=== PATIENT | female | born 1950 | race Caucasian/White ===

== ENCOUNTER → 2016-05-20 | Outpatient (REF) | payer BC | LOC: M SFHCCLAY 12:04 | PROVIDERS: ATTEND Family Medicine | DX: M79.1 Myalgia (principal) ==

== ENCOUNTER → 2016-07-12 | Outpatient (CLI) | payer BC ==
--- NOTE | 2016-07-12 11:04 | REPMRS ---
Patient History The patient states she had a clinical breast exam in Patient is postmenopausal. Family history of prostate cancer in father, breast cancer in paternal aunt at age 45, and colorectal cancer in paternal uncle at age 50 or over. Took unspecified hormones for 3 years. Digital Woman Screen Mammo: July 12, 2016 - Exam #: [id number] Bilateral CC and MLO view(s) were taken. Technologist: Charity Perez, Technologist Prior study comparison: July 11, 2015, digital woman screen mammo performed at [facility]. July 09, 2014, digital woman screen mammo performed at [facility]. July 06, 2012, digital woman screen mammo performed at [facility]. July 02, 2011, digital woman screen mammo performed at [facility]. FINDINGS: There are scattered fibroglandular densities. There has been no change in the appearance of the mammogram from the prior studies. There is a moderate amount of residual fibroglandular tissue which is fairly symmetric. There is no interval development of dominant mass, architectural distortion or clustered microcalcification suggestive of malignancy. Scattered lymph nodes are seen in the axilla. There is a benign appearing skin mole in the upper outer quadrant of the left breast. Scattered lymph nodes are seen in the left axilla. No significant changes when compared with prior studies. ASSESSMENT: BI-RADS/ACR category 2 mammogram. Benign finding(s). Recommendation Routine screening mammogram in 1 year (for women over age 40). This mammogram was interpreted with the aid of an FDA-approved computer-aided dectection system. A. Negative x-ray reports should not delay biopsy if a dominant or clinically suspicious mass is present. B. Four to eight percent of cancers are not identified by mammography. C. Adenosis and dense breast may obscure an underlying neoplasm. Electronically Signed By: Vinicius Guzmán MD 07/12/16 [id number]
== END ==
LOC: M WHC 09:31
PROVIDERS: ATTEND Nurse Practitioner Women's Health
DX: Z12.31 Encounter for screening mammogram for malignant neoplasm of breast (principal)

== ENCOUNTER → 2016-07-12 | Outpatient (REF) | payer BC | LOC: M SFHCWAGY 10:17 | PROVIDERS: ATTEND Nurse Practitioner Women's Health | DX: N88.8 Other specified noninflammatory disorders of cervix uteri (principal) ==

== ENCOUNTER → 2016-09-01 | Outpatient (CLI) | payer BC ==
[2016-09-01 14:55] LABS: ANION GAP 5 MEQ/L (8-16); BLOOD UREA NITROGEN 12 MG/DL (7-18); CALCIUM LEVEL 8.5 MG/DL (8.8-10.2); CARBON DIOXIDE LEVEL 33 MEQ/L (21-32); CHLORIDE LEVEL 99 MEQ/L (98-107); CREATININE FOR GFR 0.63 MG/DL (0.55-1.02); GLOMERULAR FILTRATION RATE > 60.0 (>45); GLUCOSE, FASTING 89 MG/DL (80-110); POTASSIUM SERUM 3.5 MEQ/L (3.5-5.1); SODIUM LEVEL 137 MEQ/L (136-145)
--- NOTE | 2016-09-01 16:10 | ECGEPIP ---
Stationary ECG Study [facility] Test Date: 2016-09-01 Pat Name: CORAZON LACKEY Department: Room: - Gender: F Doctor Of Dental Surgery: : 1950 Requested By: Kushal Rousseau Order Number: [id number] Reading MD: Ana Munoz Measurements Intervals [place] Rate: 68 P: 72 [place]: 168 QRS: 63 QRSD: 96 T: 66 QT: 377 QTc: 402 Interpretive Statements SINUS RHYTHM PRWP NO PRIOR Electronically Signed On 09-01-2016 16:10:10 EDT by Ana Munoz
== END ==
LOC: M LAB 14:06
PROVIDERS: ATTEND Ophthalmology
DX: I10 Essential (primary) hypertension (principal); R79.89 Other specified abnormal findings of blood chemistry; D58.2 Other hemoglobinopathies

== ENCOUNTER → 2017-01-13 | Outpatient (REF) | payer MEDICARE, BC | LOC: M SFHCCLAY 11:52 | PROVIDERS: ATTEND Family Medicine | DX: C44.519 Basal cell carcinoma of skin of other part of trunk (principal); C44.529 Squamous cell carcinoma of skin of other part of trunk ==

== ENCOUNTER → 2017-03-14 | Outpatient (REF) | payer MEDICARE, BC | LOC: M SFHCCLAY 15:42 | PROVIDERS: ATTEND Family Medicine | DX: R19.7 Diarrhea, unspecified (principal) | CPT/HCPCS: 87507; G0463 ==

== ENCOUNTER → 2017-05-11 | Outpatient (REF) | payer MEDICARE, BC ==
[2017-05-18 00:06] LABS: FATS NEUTRAL Normal (.); FATS TOTAL Normal (.)
== END ==
LOC: M LAB REF 13:44
DX: K59.1 Functional diarrhea (principal); K21.9 Gastro-esophageal reflux disease without esophagitis; R13.10 Dysphagia, unspecified; K92.1 Melena
CPT/HCPCS: 82705

== ENCOUNTER 2017-06-16 09:46 | Day surgery (SDC) | payer MEDICARE ==
[~2017-06-16 09:46] MED LIST: LIDOCAINE 2% MDV 20 ML VIAL As Ordered; PROPOFOL 200 MG/20 ML VIAL As Ordered
[2017-06-16] MEDS: NS 1,000 ML IV (10:28)
[2017-06-16] MEDS ORDERED: PROPOFOL 200 MG/20 ML VIAL As Ordered ×3 (11:47)
== END 2017-06-16 12:39 | disposition home or self-care (01) ==
LOC: M OPP 09:46
DX: R19.7 Diarrhea, unspecified (principal); Z86.010 Personal history of colon polyps; R13.10 Dysphagia, unspecified; K22.2 Esophageal obstruction; K22.4 Dyskinesia of esophagus; K21.9 Gastro-esophageal reflux disease without esophagitis; R12 Heartburn; F41.9 Anxiety disorder, unspecified; Z78.0 Asymptomatic menopausal state; M35.3 Polymyalgia rheumatica; Z88.0 Allergy status to penicillin; Z79.52 Long term (current) use of systemic steroids; Z79.899 Other long term (current) drug therapy; Z80.8 Family history of malignant neoplasm of other organs or systems; Z87.891 Personal history of nicotine dependence
CPT/HCPCS: 45380

== ENCOUNTER 2017-06-19 15:24 | Emergency (ER) | payer MEDICARE ==
[2017-06-19] MEDS: TRIMETHOBENZAMIDE HCL INJ 200 MG/2 ML VIAL (J3250) IM (16:53)
[2017-06-19] MEDS: NS 1,000 ML IV (16:53)
[2017-06-19 17:13] LABS: BASO % 0.3 % (0.0-1.0); EOS % 0.1 % (0.0-3.0); HEMATOCRIT 40.9 % (36.0-47.0); HEMOGLOBIN 14.4 g/dl (12.0-16.0); IMMATURE GRANULOCYTE % 0.4 % (0-3.0); LYMPH # 1.2 10^3/uL (1.5-4.5); LYMPH % 12.8 % (24.0-44.0); MEAN CORPUSCULAR HEMOGLOBIN 32.1 pg (27.0-33.0); MEAN CORPUSCULAR HGB CONC 35.2 g/dl (32.0-36.5); MEAN CORPUSCULAR VOLUME 91.3 fl (80.0-96.0); MONO # 0.7 10^3/uL (0.0-0.8); MONO % 7.4 % (0.0-5.0); NEUTROPHILS # 7.3 10^3/uL (1.8-7.7); PLATELET COUNT, AUTOMATED 326 10^3/uL (150-450); RED BLOOD COUNT 4.48 10^6/uL (4.00-5.40); RED CELL DISTRIBUTION WIDTH 11.4 % (11.5-14.5); WHITE BLOOD COUNT 9.2 10^3/uL (4.0-10.0)
[2017-06-19 17:43] LABS: ALBUMIN 4.1 GM/DL (3.2-5.2); ALBUMIN/GLOBULIN RATIO 1.24 (1.00-1.93); ALKALINE PHOSPHATASE 57 U/L (45-117); ALT/SGPT 14 U/L (12-78); ANION GAP 9 MEQ/L (8-16); AST/SGOT 14 U/L (7-37); BILIRUBIN,DIRECT 0.2 MG/DL (0.0-0.2); BILIRUBIN,TOTAL 0.7 MG/DL (0.2-1.0); BLOOD UREA NITROGEN 9 MG/DL (7-18); C REACTIVE PROTEIN QUANTITATIV < 0.30 MG/DL (0.00-0.30); CARBON DIOXIDE LEVEL 28 MEQ/L (21-32); CHLORIDE LEVEL 99 MEQ/L (98-107); CREATININE FOR GFR 0.51 MG/DL (0.55-1.30); GLOMERULAR FILTRATION RATE > 60.0 (>45); GLUCOSE, FASTING 93 MG/DL (70-100); POTASSIUM SERUM 3.5 MEQ/L (3.5-5.1); SODIUM LEVEL 136 MEQ/L (136-145); TOTAL PROTEIN 7.4 GM/DL (6.4-8.2)
[2017-06-19 17:52] LABS: ERYTHROCYTE SEDIMENTATION RATE 8 mm/hr (0-30)
== END 2017-06-19 18:48 | disposition home or self-care (01) ==
LOC: M ED 15:24
DX: K62.5 Hemorrhage of anus and rectum (principal); K91.89 Other postprocedural complications and disorders of digestive system; R11.2 Nausea with vomiting, unspecified; R19.7 Diarrhea, unspecified; Z79.899 Other long term (current) drug therapy; Z88.0 Allergy status to penicillin
CPT/HCPCS: J3250

== ENCOUNTER → 2017-07-14 | Outpatient (REF) | payer MEDICARE | LOC: M SFHCWAGY 09:50 | DX: Z12.4 Encounter for screening for malignant neoplasm of cervix (principal) | CPT/HCPCS: G0123 ==

== ENCOUNTER → 2017-07-14 | Outpatient (CLI) | payer MEDICARE | LOC: M WHC 09:38 | DX: Z12.31 Encounter for screening mammogram for malignant neoplasm of breast (principal); Z78.0 Asymptomatic menopausal state; Z79.890 Hormone replacement therapy; M85.80 Other specified disorders of bone density and structure, unspecified site; Z12.4 Encounter for screening for malignant neoplasm of cervix | CPT/HCPCS: 77067; G0123 ==

== ENCOUNTER → 2017-12-07 | Outpatient (CLI) | payer MEDICARE | LOC: M LRY 14:46 | DX: M19.041 Primary osteoarthritis, right hand (principal); M25.741 Osteophyte, right hand; M19.042 Primary osteoarthritis, left hand; M51.35 Other intervertebral disc degeneration, thoracolumbar region; M25.78 Osteophyte, vertebrae; M41.86 Other forms of scoliosis, lumbar region; M43.17 Spondylolisthesis, lumbosacral region; M35.3 Polymyalgia rheumatica | CPT/HCPCS: 72070 ==

== ENCOUNTER → 2017-12-07 | Outpatient (REF) | payer MEDICARE ==
[2017-12-07 16:36] LABS: BASO % 0.6 % (0.0-1.0); EOS # 0.1 10^3/uL (0.0-0.50); EOS % 0.7 % (0.0-3.0); HEMATOCRIT 40.9 % (36.0-47.0); HEMOGLOBIN 13.6 g/dl (12.0-15.5); IMMATURE GRANULOCYTE % 0.4 % (0-3.0); LYMPH # 1.4 10^3/uL (1.5-4.5); LYMPH % 18.8 % (24.0-44.0); MEAN CORPUSCULAR HEMOGLOBIN 32.1 pg (27.0-33.0); MEAN CORPUSCULAR HGB CONC 33.3 g/dl (32.0-36.5); MEAN CORPUSCULAR VOLUME 96.5 fl (80.0-96.0); MONO # 0.5 10^3/uL (0.0-0.8); MONO % 6.9 % (0.0-5.0); NEUTROPHILS # 5.3 10^3/uL (1.8-7.7); NEUTROPHILS % 72.6 % (36.0-66.0); PLATELET COUNT, AUTOMATED 312 10^3/uL (150-450); RED BLOOD COUNT 4.24 10^6/uL (4.00-5.40); RED CELL DISTRIBUTION WIDTH 11.9 % (11.5-14.5); WHITE BLOOD COUNT 7.2 10^3/uL (4.0-10.0)
[2017-12-07 17:35] LABS: TOTAL 25(OH) VITAMIN D 45.5 NG/ML (30.0-100.0); VITAMIN B12 LEVEL 386 PG/ML (247-911)
[2017-12-07 17:37] LABS: ALBUMIN 3.7 GM/DL (3.2-5.2); ALBUMIN/GLOBULIN RATIO 1.28 (1.00-1.93); ALKALINE PHOSPHATASE 59 U/L (45-117); ALT/SGPT 14 U/L (12-78); ANION GAP 7 MEQ/L (8-16); AST/SGOT 10 U/L (7-37); BILIRUBIN,TOTAL 0.4 MG/DL (0.2-1.0); BLOOD UREA NITROGEN 16 MG/DL (7-18); C REACTIVE PROTEIN QUANTITATIV < 0.30 MG/DL (0.00-0.30); CALCIUM LEVEL 8.9 MG/DL (8.8-10.2); CARBON DIOXIDE LEVEL 32 MEQ/L (21-32); CHLORIDE LEVEL 101 MEQ/L (98-107); CREATININE FOR GFR 0.69 MG/DL (0.55-1.30); GLOMERULAR FILTRATION RATE > 60.0 (>45); GLUCOSE, FASTING 79 MG/DL (70-100); POTASSIUM SERUM 4.1 MEQ/L (3.5-5.1); RHEUMATOID FACTOR QUANT < 10.0 IU/ML (<15.0); SODIUM LEVEL 140 MEQ/L (136-145); TOTAL PROTEIN 6.6 GM/DL (6.4-8.2)
[2017-12-07 18:29] LABS: ERYTHROCYTE SEDIMENTATION RATE 7 mm/hr (0-30)
[2017-12-10 00:06] LABS: CYCLIC CITRULLINATED PEPTIDE 5 units (0-19)
[2017-12-10 00:06] LABS: ANA (HEP2) Negative (.)
== END ==
LOC: M SFHCLERA 14:27
DX: M35.3 Polymyalgia rheumatica (principal); M85.89 Other specified disorders of bone density and structure, multiple sites; M54.6 Pain in thoracic spine
CPT/HCPCS: 82607

== ENCOUNTER → 2018-01-27 | Outpatient (REF) | payer MEDICARE ==
[2018-01-27 17:47] LABS: ERYTHROCYTE SEDIMENTATION RATE 16 mm/hr (0-30)
[2018-01-27 18:13] LABS: C REACTIVE PROTEIN QUANTITATIV 0.51 MG/DL (0.00-0.30)
== END ==
LOC: M SFHCCLAY 13:29
DX: M35.3 Polymyalgia rheumatica (principal)
CPT/HCPCS: 86140

== ENCOUNTER → 2018-04-06 | Outpatient (REF) | payer MEDICARE ==
[~2018-04-06] MED LIST changes: +BENT10CA PO; +CITA40TA4; +FIBE625T22 PO; -LIDOCAINE 2% MDV 20 ML VIAL As Ordered; +OMEP40CA2; +PRED1TABL PO; +PROBCAP4 PO; -PROPOFOL 200 MG/20 ML VIAL As Ordered; +TIGA300C2 PO; +TRAZ1TAB14
== END ==
LOC: M SFHCPLAZ 10:52
PROVIDERS: ATTEND Internal Medicine Rheumatology
DX: M35.3 Polymyalgia rheumatica (principal)
CPT/HCPCS: 36415; 85652; 86140; G0463

== ENCOUNTER → 2018-06-08 | Outpatient (CLI) | payer MEDICARE ==
--- NOTE | 2018-06-08 13:58 | REP ---
BILATERAL HIPS, FOUR VIEWS: HISTORY: Arthritis. RIGHT HIP: There is no acute fracture or dislocation. There is minimal narrowing of the joint space. IMPRESSION: Degenerative change as described above. LEFT HIP: There is no acute fracture or dislocation. There is minimal narrowing of the joint space. IMPRESSION: Degenerative change as described above. Electronically Signed by Juan Cordero MD 06/08/2018 02:01 P
--- NOTE | 2018-06-08 14:35 | REP ---
STANDING AP KNEES, ONE VIEW: There is no acute fracture or dislocation. There is mild narrowing of the right medial knee joint space and minimal narrowing of the right lateral knee joint space. There is minimal narrowing of the left knee joint space. IMPRESSION: Degenerative change as described above. Electronically Signed by Juan Cordero MD 06/08/2018 02:42 P
--- NOTE | 2018-06-08 14:39 | REP ---
BILATERAL KNEE, NINE VIEWS: HISTORY: Arthralgia. RIGHT KNEE: There is no acute fracture or dislocation. There is mild narrowing of the medial knee joint space and minimal narrowing of the lateral knee joint space. The patellofemoral joint space is normal in appearance. An osteophyte is present on the tibia. IMPRESSION: Degenerative change as described above. LEFT KNEE: There is no acute or dislocation. There is minimal narrowing of the knee joint space. The patellofemoral joint space is normal in appearance. IMPRESSION: Degenerative change as described above. Electronically Signed by Juan Cordero MD 06/08/2018 02:41 P
== END ==
LOC: M SMT 11:23
PROVIDERS: ATTEND Internal Medicine Rheumatology
DX: M17.0 Bilateral primary osteoarthritis of knee (principal); M25.761 Osteophyte, right knee; M16.0 Bilateral primary osteoarthritis of hip; M25.569 Pain in unspecified knee; M25.559 Pain in unspecified hip; M35.3 Polymyalgia rheumatica
CPT/HCPCS: 36415; 73522; 73564; 85652; 86140; G0463

== ENCOUNTER → 2018-06-21 | Outpatient (REF) | payer MEDICARE | LOC: M SFHCPLAZ 09:47 | PROVIDERS: ATTEND Dermatology | DX: C44.310 Basal cell carcinoma of skin of unspecified parts of face (principal); D22.9 Melanocytic nevi, unspecified ==

== ENCOUNTER → 2018-07-03 | Outpatient (REF) | payer MEDICARE | LOC: M SFHCPLAZ 11:35 | PROVIDERS: ATTEND Dermatology | DX: C44.41 Basal cell carcinoma of skin of scalp and neck (principal) ==

== ENCOUNTER → 2018-07-17 | Outpatient (CLI) | payer MEDICARE ==
--- NOTE | 2018-07-17 12:08 | REPMRS ---
Patient History The patient states she had a clinical breast exam in 07/2018. Patient is postmenopausal. Family history of breast cancer at age 45 in paternal aunt, colorectal cancer at age 50 or over in paternal uncle, prostate cancer in father. Took estrogen for 1 year. Took unspecified hormones for 3 years. 3D TOMOSYNTHESIS WAS PERFORMED. Digital Woman Screen Mammo: July 17, 2018 - Exam #: [id number] Bilateral CC and MLO view(s) were taken. Technologist: Maggie Head, Technologist Prior study comparison: July 14, 2017, digital woman screen mammo performed at [facility]. July 12, 2016, digital woman screen mammo performed at [facility]. FINDINGS: There are scattered fibroglandular densities. There has been no change in the appearance of the mammogram from the prior studies. There is a mild amount of residual fibroglandular tissue which is fairly symmetric. There is no interval development of dominant mass, architectural distortion, or clustered microcalcification suggestive of malignancy. Assessment: BI-RADS/ACR category 1 mammogram. Negative Mammogram. Recommendation Routine screening mammogram in 1 year (for women over age 40). This mammogram was interpreted with the aid of an FDA-approved computer-aided dectection system. Electronically Signed By: Jose R Gonzalez MD 07/17/18 [id number]
== END ==
LOC: M WHC 11:09
PROVIDERS: ATTEND Nurse Practitioner Women's Health
DX: Z01.419 Encounter for gynecological examination (general) (routine) without abnormal findings (principal); Z12.31 Encounter for screening mammogram for malignant neoplasm of breast; Z78.0 Asymptomatic menopausal state; Z92.29 Personal history of other drug therapy; Z92.23 Personal history of estrogen therapy
CPT/HCPCS: 77063; 77067; G0463

== ENCOUNTER → 2018-09-02 | Outpatient (CLI) | payer MEDICARE ==
--- NOTE | 2018-09-02 13:52 | REP ---
HISTORY: Wheezing. COMPARISON: 09/16/2014 Abutting or within the right minor fissure, there is a small asymmetric opacity representing a change from the prior exam and measuring approximately 9 mm. This is in the parahilar region. The lung ponce are otherwise clear and unchanged. The heart is not enlarged. The osseous structures are within normal limits for the patient's age. IMPRESSION: Small focal asymmetric opacity as described above. Etiology uncertain. Consider chest CT. Electronically Signed by Ted Quigley DO 09/02/2018 03:38 P
== END ==
LOC: M RAD 13:13
PROVIDERS: ATTEND Nurse Practitioner Family
DX: R06.2 Wheezing (principal)

== ENCOUNTER → 2018-09-08 | Outpatient (CLI) | payer MEDICARE ==
--- NOTE | 2018-09-08 15:21 | REP ---
Clinical: Abnormal chest x-ray. Technique: Axial noncontrast images from the thoracic inlet to the upper abdomen with coronal and sagittal re-formations. Findings: Moderate areas of "tree in bud" opacity appreciated in the right upper lobe, right lower lobe, and to a lesser extent the left lower lobe. Findings are most compatible with multifocal pneumonia. Tracheobronchial tree is patent. No effusion. No pneumothorax. Reactive adenopathy is suggested. Musculoskeletal structures are intact. Impression: Bilateral infiltrates (right greater than left) most compatible with multifocal pneumonia. Electronically Signed by Coleman Orr MD 09/08/2018 03:13 P
== END ==
LOC: M RAD 14:18
PROVIDERS: ATTEND Family Medicine
DX: R91.8 Other nonspecific abnormal finding of lung field (principal)

== ENCOUNTER → 2018-10-09 | Outpatient (CLI) | payer MEDICARE ==
--- NOTE | 2018-10-09 15:28 | REP ---
Clinical: Pneumonia . Comparison: 09/02/2018 . Technique: PA and lateral. Findings: The mediastinum and cardiac silhouette are normal. The lung ponce are clear and without acute consolidation, effusion, or pneumothorax. The previously identified areas of pneumonia appear resolved. The skeletal structures are intact and normal. Impression: 1. No acute cardiopulmonary process. 2. Previously noted areas of infiltrate and appear of resolved.
== END ==
LOC: M CLY 14:58
PROVIDERS: ATTEND Family Medicine
DX: Z87.01 Personal history of pneumonia (recurrent) (principal)

== ENCOUNTER → 2018-10-20 | Outpatient (CLI) | payer MEDICARE ==
--- NOTE | 2018-10-20 12:45 | REP ---
Clinical: Arthritis. Technique: AP, lateral, bilateral oblique and sunrise views of the left knee. Findings: Generalized age-related changes are appreciated including increased sclerosis along the tibial plateau with minimal joint space narrowing. No acute fracture dislocation. Small effusion cannot be excluded. Impression: Generalized age-related changes. No acute fracture dislocation. Cannot exclude small effusion.
== END ==
LOC: M CLY 11:45
PROVIDERS: ATTEND Family Medicine
DX: M17.12 Unilateral primary osteoarthritis, left knee (principal); M79.10 Myalgia, unspecified site

== ENCOUNTER → 2018-10-20 | Outpatient (REF) | payer MEDICARE ==
[2018-10-24 00:06] LABS: ANA (HEP2) Negative (.); CYCLIC CITRULLINATED PEPTIDE 3 units (0-19); Lyme Disease IgG/IgM Antibodie <0.91 ISR (0.00-0.90); Lyme Disease IgM Ab Quantitati <0.80 index (0.00-0.79)
== END ==
LOC: M SFHCCLAY 11:42
PROVIDERS: ATTEND Family Medicine
DX: M79.10 Myalgia, unspecified site (principal)

== ENCOUNTER → 2019-02-13 | Outpatient (REF) | payer MEDICARE ==
[~2019-02-13] MED LIST changes: -OMEP40CA2; +OMEP40CA97
== END ==
LOC: M SFHCPLAZ 17:21
PROVIDERS: ATTEND Dermatology
DX: D22.5 Melanocytic nevi of trunk (principal); L82.1 Other seborrheic keratosis
CPT/HCPCS: 11102; 11103; 17000; 17003; 88305; G0463

== ENCOUNTER → 2019-02-28 | Outpatient (CLI) | payer MEDICARE ==
--- NOTE | 2019-02-28 18:36 | REP ---
HISTORY: Pain. No history of trauma. COMPARISON: No prior wrist examinations for comparison. The bones are demineralized. Degenerative changes seen throughout the wrist. There is no evidence of an acute fracture. IMPRESSION: Chronic changes. Electronically Signed by Ted Quigley DO 02/28/2019 06:40 P
--- NOTE | 2019-02-28 18:37 | REP ---
HISTORY: Elbow pain. No trauma. COMPARISON: None. FINDINGS: There is no acute fracture, dislocation, subluxation, or joint effusion. Electronically Signed by Ted Quigley DO 02/28/2019 06:41 P
--- NOTE | 2019-02-28 18:45 | REP ---
HISTORY: Pain. COMPARISON: None. Mild degenerative changes are seen throughout the hand with mild intradigital joint space narrowing, but without prominent marginal osteophytosis or prominent marginal erosions. Limited two view examination shows no fracture. IMPRESSION: Mild degenerative changes as described above. Electronically Signed by Ted Quigley DO 02/28/2019 07:49 P
== END ==
LOC: M CLY 14:38
PROVIDERS: ATTEND Family Medicine
DX: M19.042 Primary osteoarthritis, left hand (principal); M19.032 Primary osteoarthritis, left wrist; M25.521 Pain in right elbow; M79.642 Pain in left hand; M25.532 Pain in left wrist
CPT/HCPCS: 36415; 73080; 73110; 73120; G0463; G0472

== ENCOUNTER → 2019-02-28 | Outpatient (REF) | payer MEDICARE | LOC: M SFHCCLAY 14:29 | PROVIDERS: ATTEND Family Medicine | DX: Z11.59 Encounter for screening for other viral diseases (principal) ==

== ENCOUNTER → 2019-05-09 | Outpatient (CLI) | payer MEDICARE ==
--- NOTE | 2019-05-09 13:20 | REP ---
Chest x-ray: Two views. History: Other chronic pain. Comparison study: October 09, 2018. Findings: There are orthopedic anchors are again noted in the humeral head on the right. The lungs are somewhat hyperinflated but clear. Pleural angles are sharp. Heart size is normal. There are degenerative changes in the thoracic spine mild in degree. The aorta is somewhat tortuous. Impression: Hyperinflation consistent with some degree of COPD. Findings unchanged from comparison study. No active disease. Electronically Signed by Shaun Sorto MD 05/09/2019 01:12 P
== END ==
LOC: M CLY 12:46
PROVIDERS: ATTEND Family Medicine
DX: M51.34 Other intervertebral disc degeneration, thoracic region (principal); M25.512 Pain in left shoulder; G89.29 Other chronic pain
CPT/HCPCS: 71046; G0463

== ENCOUNTER → 2019-05-21 | Outpatient (CLI) | payer MEDICARE ==
--- NOTE | 2019-05-21 15:50 | REP ---
C-spine series: Eight views. History: Cervical spondylosis. Findings: Cervical vertebral body heights are preserved. There is straightening of the normal cervical lordosis. Flexion extension lateral views show no flexion/extension instability. There is some limited range of extension motion. There is a stable degenerative C7-T1 4 mm spondylolisthesis. No other spondylolisthesis is seen. There is degenerative disc narrowing at each level from C3-4 through C6-7. Some narrowing is seen at C7-T1 as well. AP and open-mouth odontoid views show facet hypertrophy and sclerosis bilaterally in the cervical spine. These changes are most pronounced on the left in the mid cervical spine. Oblique images demonstrate left-sided uncovertebral spurring and facet narrowing at C3-4 and to a lesser extent C4-5 and C5-6. On the right there is uncovertebral spurring at C3-4, C5-6, and C6-7. No bony destructive lesion is seen. Impression: Degenerative spondylosis changes. There is a 4 mm stable C7-T1 spondylolisthesis. Electronically Signed by Shaun Sorto MD 05/21/2019 04:36 P
== END ==
LOC: M CLY 13:22
PROVIDERS: ATTEND Family Medicine
DX: M47.22 Other spondylosis with radiculopathy, cervical region (principal)

== ENCOUNTER → 2019-09-17 | Outpatient (REF) | payer MEDICARE ==
[2019-09-17 16:36] LABS: APPEARANCE, URINE HAZY (CLEAR); BACTERIA, URINE AUTO NEGATIVE (NEGATIVE); BILIRUBIN, URINE AUTO NEGATIVE (NEGATIVE); BLOOD, URINE BLOOD NEGATIVE (NEGATIVE); COLOR, URINE YELLOW (YELLOW); GLUCOSE, URINE (UA) AUTO NEGATIVE (NEGATIVE); KETONE, URINE AUTO NEGATIVE (NEGATIVE); LEUKOCYTE ESTERASE, URINE AUTO NEGATIVE (NEGATIVE); MUCUS, URINE SMALL (NEGATIVE); NITRITE, URINE AUTO NEGATIVE (NEGATIVE); PROTEIN, URINE AUTO NEGATIVE (NEGATIVE); RBC, URINE AUTO 0 /HPF (0-3); SPECIFIC GRAVITY URINE AUTO 1.011 (1.002-1.035); SQUAMOUS EPITHELIAL CELL UR AU 0 /HPF (0-6); UROBILINOGEN, URINE AUTO 0.2 mg/dL (0.0-2.0); WBC, URINE AUTO 0 /HPF (0-3)
== END ==
LOC: M SFHCCLAY 09:44
PROVIDERS: ATTEND Nurse Practitioner Family
DX: R30.0 Dysuria (principal)

== ENCOUNTER → 2019-09-25 | Outpatient (CLI) | payer MEDICARE ==
--- NOTE | 2019-09-25 12:42 | REPMRS ---
Patient History The patient states she had a clinical breast exam in September 2019. Family history of breast cancer at age 45 in paternal aunt, colorectal cancer at age 50 or over in paternal uncle, prostate cancer in father. Took estrogen for 1 year. Took unspecified hormones for 3 years. 3D TOMOSYNTHESIS WAS PERFORMED. The Bebeto Soria lifetime risk for breast cancer is 8.1%. VOLPARA DENSITY B. Digital Woman Screen Mammo: September 25, 2019 - Exam #: [id number] Bilateral CC and MLO view(s) were taken. Technologist: Meaghan Gruber, Technologist Prior study comparison: July 17, 2018, bilateral digital woman screen mammo performed at [facility]. July 14, 2017, digital woman screen mammo performed at [facility]. FINDINGS: The breast tissue is heterogeneously dense. This may lower the sensitivity of mammography. There has been no change in the appearance of the mammogram from the prior studies. There is a moderate amount of residual fibroglandular tissue which is fairly symmetric. There is no interval development of dominant mass, areas of architectural distortion, or clustered microcalcification typical of malignancy. Assessment: BI-RADS/ACR category 1 mammogram. Negative Mammogram. Recommendation Routine screening mammogram in 1 year (for women over age 40). This mammogram was interpreted with the aid of an FDA-approved computer-aided dectection system. Electronically Signed By: Jose R Gonzalez MD 09/25/19 [id number]
== END ==
LOC: M WHC 11:07
PROVIDERS: ATTEND Nurse Practitioner Women's Health
DX: Z12.31 Encounter for screening mammogram for malignant neoplasm of breast (principal); Z80.42 Family history of malignant neoplasm of prostate; Z92.23 Personal history of estrogen therapy; Z92.29 Personal history of other drug therapy
CPT/HCPCS: 77063; 77067; G0463

== ENCOUNTER 2019-11-06 20:02 | Emergency (ER) | payer MEDICARE ==
[~2019-11-06] VITALS: Ht 165.1 cm; Wt 58.3 kg
[2019-11-06] MEDS ORDERED: NS 1,000 ML IV ONE (20:15)
[2019-11-06] MEDS ORDERED: GABA-843 PO (20:17)
[2019-11-06] MEDS ORDERED: ISOVUE-370 76% 100ML VIAL As Ordered ONE (20:22)
[2019-11-06 20:29] LABS: BASO # 0.1 10^3/uL (0.0-0.2); BASO % 0.7 % (0.0-1.0); EOS # 0.1 10^3/uL (0.0-0.5); HEMATOCRIT 39.4 % (36.0-47.0); HEMOGLOBIN 13.6 g/dl (12.0-15.5); LYMPH % 28.9 % (24.0-44.0); MEAN CORPUSCULAR HGB CONC 34.5 g/dl (32.0-36.5); MEAN CORPUSCULAR VOLUME 95.6 fl (80.0-96.0); MONO # 0.5 10^3/uL (0.0-0.8); MONO % 7.7 % (0.0-5.0); NEUTROPHILS # 4.2 10^3/uL (1.5-8.5); PLATELET COUNT, AUTOMATED 295 10^3/uL (150-450); RED BLOOD COUNT 4.12 10^6/uL (4.00-5.40); WHITE BLOOD COUNT 6.9 10^3/uL (4.0-10.0)
[2019-11-06 20:40] LABS: ALBUMIN 3.9 GM/DL (3.2-5.2); ALT/SGPT 18 U/L (12-78); AMYLASE 47 U/L (25-115); BILIRUBIN,DIRECT 0.1 MG/DL (0.0-0.2); BILIRUBIN,TOTAL 0.4 MG/DL (0.2-1.0); CK-MB VALUE MASS 1.2 NG/ML (<3.6); CPK CREATINE PHOSPHOKINASE 123 U/L (26-192); LIPASE 122 U/L (73-393); MB/CK RELATIVE INDEX 0.98 (< OR =4); TOTAL PROTEIN 6.8 GM/DL (6.4-8.2); TROPONIN I < 0.02 NG/ML (< 0.10)
[2019-11-06 20:48] LABS: INR 0.91
[2019-11-06 20:49] LABS: PARTIAL THROMBOPLASTIN TIME 26.1 SECONDS (25.0-38.4)
--- NOTE | 2019-11-06 20:55 | REPVR ---
PROCEDURE INFORMATION: Exam: CT Maxillofacial Without Contrast Exam date and time: 11/06/2019 8:35 PM Age: 69 years old Clinical indication: Injury or trauma; Injury history: Kicked by horse. Possibly stepped on by horse; Initial encounter; Blunt trauma (contusions or hematomas); Lip/oral cavity; Lower TECHNIQUE: Imaging protocol: Computed tomography images of the face without contrast. Radiation optimization: All CT scans at this facility use at least one of these dose optimization techniques: automated exposure control; mA and/or kV adjustment per patient size (includes targeted exams where dose is matched to clinical indication); or iterative reconstruction. COMPARISON: No relevant prior studies available. FINDINGS: Orbits: Orbits are normal. Globes are unremarkable. Bones/joints: No evidence of sphenoid sinus fracture. Sinuses: Normal. No air-fluid levels. Vasculature: Intracranial air demonstrated posterior to the orbital apices and in the cavernous sinus regions bilaterally. Location of the gas may be extravascular, intra arterial or intravenous. Soft tissues: Unremarkable. IMPRESSION: 1. Intracranial air demonstrated posterior to the orbital apices and in the cavernous sinus regions bilaterally. Location of the gas may be extravascular, intra arterial or intravenous. Iatrogenic etiologies to be excluded. 2. No evidence of sphenoid sinus fracture. 3. No other fractures demonstrated. Electronically signed by: Jairo Beauchamp On 11/06/2019 20:54:36 PM
--- NOTE | 2019-11-06 21:00 | REPVR ---
PROCEDURE INFORMATION: Exam: CT Cervical Spine Without Contrast Exam date and time: 11/06/2019 8:35 PM Age: 69 years old Clinical indication: Injury or trauma; Injury history: Kicked by horse. Possibly stepped on by horse; Initial encounter; Blunt trauma TECHNIQUE: Imaging protocol: Computed tomography images of the cervical spine without contrast. Radiation optimization: All CT scans at this facility use at least one of these dose optimization techniques: automated exposure control; mA and/or kV adjustment per patient size (includes targeted exams where dose is matched to clinical indication); or iterative reconstruction. COMPARISON: CR SPINE CERVICAL COMPL 05/21/2019 1:32 PM FINDINGS: Vertebrae: Grade 1-2 anterolisthesis of C7 on T1 a finding which was present on prior cervical spine films of 05/21/2019. Discs/Spinal canal/Neural foramina: Disc space narrowing at C3-C4 through C7-T1 with intervertebral osteophytes. Moderate foraminal stenosis on the left at C2, bilateral moderate to severe foraminal stenosis at C3, severe foraminal stenosis on the left at C4, moderate foraminal stenosis on the right and severe foraminal stenosis on the left at C5, bilateral moderate to severe foraminal stenosis at C6 secondary to uncinate joint hypertrophic changes. Disc osteophyte complexes demonstrated from C3-C4 through C6-C7 resulting in varying degrees of effacement of the ventral subarachnoid space. There is mild cord impingement at C3-C4 secondary to an associated posterior disc protrusion. Small protrusion demonstrated at C4-C5 without significant cord impingement. Disc protrusion and disc osteophyte complex at C5-C6 results in mild cord impingement. Disc osteophyte complex and posterior calcified herniated disc at C6-C7 results in moderate cord impingement. Soft tissues: Unremarkable. Lungs: Bilateral apical pleural parenchymal scarring. IMPRESSION: 1. Degenerative spondylosis. 2. Stable anterolisthesis of C7 on T1. 3. Multilevel bilateral foraminal stenosis and multilevel disc osteophyte complexes resulting in mild cord impingement at C3-C4, C5-C6 and moderate cord impingement at C6-C7 4. No acute findings. Electronically signed by: Jairo Beauchamp On 11/06/2019 21:00:24 PM
--- NOTE | 2019-11-06 21:03 | REPVR ---
PROCEDURE INFORMATION: Exam: CT Head Without Contrast Exam date and time: 11/06/2019 8:35 PM Age: 69 years old Clinical indication: Injury or trauma; Injury history: Kicked by horse. Possibly stepped on by horse; Initial encounter; Blunt trauma (contusions or hematomas) TECHNIQUE: Imaging protocol: Computed tomography of the head without contrast. Radiation optimization: All CT scans at this facility use at least one of these dose optimization techniques: automated exposure control; mA and/or kV adjustment per patient size (includes targeted exams where dose is matched to clinical indication); or iterative reconstruction. COMPARISON: MRI-Brain W/O FOLL BY WITH 07/30/2013 10:36 AM FINDINGS: Brain: Normal. No hemorrhage. Unremarkable white matter. No mass effect. Ventricles: Normal. No ventriculomegaly. Bones/joints: Unremarkable. No acute fracture. Sinuses: Unremarkable. Mastoid air cells: Visualized mastoid air cells are well aerated. Vasculature: Air locules demonstrated in the cavernous sinus regions as previously discussed. Please refer to accompanying CT maxillary sinus report. Soft tissues: Unremarkable. IMPRESSION: 1. Air locules demonstrated in the cavernous sinus regions as previously discussed. Please refer to accompanying CT maxillary sinus report. 2. No other acute intracranial findings. Electronically signed by: Jairo Beauchamp On 11/06/2019 21:02:46 PM
[2019-11-06] MEDS ORDERED: fentaNYL 100 MCG/2 ML INJECTION (J3010) IV ONE (21:30)
--- NOTE | 2019-11-06 21:30 | REPVR ---
PROCEDURE INFORMATION: Exam: CT Chest With Contrast Exam date and time: 11/06/2019 8:35 PM Age: 69 years old Clinical indication: Injury or trauma; Injury history: Kicked by horse. Possibly stepped on by horse; Initial encounter; Blunt trauma (contusions or hematomas); Additional info: Trauma - kicked by horse TECHNIQUE: Imaging protocol: Computed tomography of the chest with intravenous contrast. Radiation optimization: All CT scans at this facility use at least one of these dose optimization techniques: automated exposure control; mA and/or kV adjustment per patient size (includes targeted exams where dose is matched to clinical indication); or iterative reconstruction. Contrast material: ISOVUE 370; Contrast volume: 100 ml; Contrast route: INTRAVENOUS (IV); COMPARISON: CT Chest without contrast 09/08/2018 2:30 PM FINDINGS: Tracheobronchial tree: Intact and patent. Lungs: The tree-in-bud opacities in the right upper lobe and both lower lobes that can be seen in the prior CT chest on 09/08/2018 have resolved. There is a 10 mm ground-glass opacity in the anteromedial segment of the left lower lobe (image 72 of the axial series 504) that has developed since the prior CT chest on 09/08/2018. There is a 4 mm solid pulmonary nodule in the anteromedial segment of the left lower lobe (image 64 of the axial series 504), which has also developed since the prior CT chest on 09/08/2018. The lungs are otherwise clear. No emphysematous changes are noted. Pleural space: Normal. No pneumothorax or pleural effusion. Heart: No cardiomegaly. No pericardial effusion. Mediastinal space: No mediastinal mass, fluid collection, or pneumomediastinum. Pulmonary arteries: There is no pulmonary embolism in the main, lobar, or segmental pulmonary arteries. The timing of the contrast bolus was suboptimal for the assessment of the subsegmental pulmonary arteries, which are poorly opacified. Aorta: The thoracic aorta is intact and patent. There is no thoracic aortic aneurysm, pseudoaneurysm, penetrating atherosclerotic ulcer, intramural hematoma, or dissection. There are mild atherosclerotic calcifications. Great vessels off aortic arch: The brachiocephalic artery, imaged proximal portions of the common carotid arteries, imaged proximal portions of the vertebral arteries, and subclavian arteries are intact. No stenosis or occlusion of these vessels is noted. Superior vena cava: Patent. Lymph nodes: No enlarged lymph nodes. Adrenals: There is a 13 mm nodule in the left adrenal gland, which is unchanged in size compared to the prior CT chest on 09/08/2018 and for which further follow-up is not necessary. The right adrenal gland is normal. Bones/joints: There is no fracture. No suspicious osteolytic or osteoblastic lesion. There are suture anchors in the right humeral head. There are degenerative changes in the cervical spine and thoracic spine. There is a 3 mm grade 1 anterolisthesis of C7 on T1 secondary to severe osteoarthritis of the C7-T1 facet joints that is similar in appearance compared to the prior CT chest on 09/08/2018. Soft tissues: Unremarkable. No soft tissue fluid collection. Other findings: Refer to the CT abdomen and pelvis report on 11/06/2019 for details regarding the abdominal and pelvic findings. IMPRESSION: 1. 1 cm ground-glass opacity in the anteromedial segment of the left lower lobe that has developed since the prior CT chest on 09/08/2018 and may represent a pulmonary contusion or may be infectious or inflammatory in nature. Recommend CT at 6-12 months to confirm persistence of the nodule, then CT at 3 and at 5 years. (MacMahon, et al., Fleischner Society, 2017) 2. 4 mm solid pulmonary nodule in the anteromedial segment of the left lower lobe that has developed since the prior CT chest on 09/08/2018. For patients at low risk (minimal or absent history of smoking and of other known risk factors), no routine follow-up is indicated. For patients at high risk (history of smoking or of other known risk factors), consider optional CT at 12 months. (MacMahorenetta, et al., Fleischner Society, 2017) Electronically signed by: Tunde Rodriguez On 11/06/2019 21:29:46 PM
--- NOTE | 2019-11-06 21:30 | REPVR ---
PROCEDURE INFORMATION: Exam: CT Abdomen And Pelvis With Contrast Exam date and time: 11/06/2019 8:35 PM Age: 69 years old Clinical indication: Injury or trauma; Injury history: Kicked by horse. Possibly stepped on by horse; Initial encounter; Blunt; Generalized TECHNIQUE: Imaging protocol: Computed tomography of the abdomen and pelvis with intravenous contrast. Radiation optimization: All CT scans at this facility use at least one of these dose optimization techniques: automated exposure control; mA and/or kV adjustment per patient size (includes targeted exams where dose is matched to clinical indication); or iterative reconstruction. Contrast material: ISOVUE 370; Contrast volume: 100 ml; Contrast route: INTRAVENOUS (IV); COMPARISON: 1. PELVIS NON-OB COMPLETE US 07/19/2017 11:[address] Chest without contrast 09/08/2018 2:30:37 PM FINDINGS: Lungs: Refer to the CT chest report on 11/06/2019 for details. Heart: Refer to the CT chest report on 11/06/2019 for details. Diaphragm: Intact. Liver: Intact. No liver lesion is seen. The contour of the liver is smooth. No hepatomegaly is noted. Gallbladder and bile ducts: No calcified gallstones are noted. No gallbladder wall thickening, pericholecystic fluid, or pericholecystic inflammatory changes are identified. No dilation of the bile ducts is noted. No calcified stones are seen in the common bile duct. Pancreas: Normal. No dilation of the main pancreatic duct is noted. There is no inflammatory fat stranding around the pancreas to suggest acute pancreatitis. Spleen: Normal. No splenomegaly is noted. Adrenals: There is a 13 mm nodule in the left adrenal gland, which is unchanged in size compared to the prior CT chest on 09/08/2018 and for which further follow-up is not necessary. The right adrenal gland is normal. Kidneys and ureters: The kidneys are intact. No renal lesion is identified. No stones are noted in the kidneys or ureters. There is no hydronephrosis or hydroureter. Stomach and bowel: The stomach and small bowel are unremarkable. There is sigmoid diverticulosis without evidence for diverticulitis. There is no evidence for a bowel obstruction, pneumatosis intestinalis, intussusception, volvulus, or perforated viscus. The distal transverse colon, descending colon, and sigmoid colon are decompressed, limiting their optimal evaluation. No pericolonic inflammatory fat stranding is noted. Appendix: The appendix is not identified and may have been removed. No dilated blind ending tubular structure, inflammatory fat stranding, or fluid is noted in the expected location of the appendix. Intraperitoneal space: Unremarkable. No fluid collection. No free air. Retroperitoneal space: No retroperitoneal hemorrhage. Vasculature: The abdominal aorta is patent, normal in caliber, and there is no dissection. The iliac arteries, common femoral arteries, renal arteries, celiac artery, superior mesenteric artery, and inferior mesenteric artery are patent. Lymph nodes: No enlarged lymph nodes. Bladder: Intact. No stones or masses are seen in the bladder. Reproductive: The anteverted uterus and ovaries are unremarkable. Bones/joints: There is no fracture or dislocation. Incidental note is made of small bone islands in the left side of the sacrum and left ischium. There are degenerative changes involving the lumbar spine. Soft tissues: Unremarkable. No hernia. No soft tissue fluid collection. IMPRESSION: 1. No CT evidence for acute traumatic injury in the abdomen or pelvis. 2. Sigmoid diverticulosis without evidence for diverticulitis. Electronically signed by: Tunde Rodriguez On 11/06/2019 21:29:58 PM
[2019-11-06] MEDS ORDERED: BOOSTRIX/ADACEL VACCINE (DIPHTH/PERTUSS/ACELL/TETANUS) 0.5ML SYR IM ONE (21:45)
[2019-11-06] MEDS ORDERED: LIDOCAINE 1% MDV 20ML VIAL SC ONE (21:45)
[2019-11-06] MEDS ORDERED: IMIPENEM/CILASTATIN 500 MG in D5W MINI-BAG PLUS 100 ML IV ONE (22:00)
[2019-11-06] MEDS ORDERED: ONDANSETRON 4MG/2ML VIAL As Ordered ONE (23:08)
[2019-11-06 23:15] VITALS: BP 146/64
[2019-11-06] MEDS ORDERED: ONDANSETRON 4MG/2ML VIAL IV ONE (23:15)
--- NOTE | 2019-11-07 10:53 | ECGEPIP ---
[facility] - ED Test Date: 2019-11-06 Pat Name: CORAZON LACKEY Department: Room: - Gender: Female [employer]: : 1950 Requested By: SHIELA Uribe Order Number: [id number] Reading MD: Cris Tovar Measurements Intervals [place] Rate: 73 P: 63 RI: 190 QRS: 54 QRSD: 94 T: 59 QT: 388 QTc: 428 Interpretive Statements SINUS RHYTHM SIMILAR 09/01/16 Electronically Signed on 11-07-2019 10:53:04 EDT by Cris Tovar
== END 2019-11-06 23:31 | disposition short-term general hospital (02) ==
LOC: M ED 20:02 → EDBD 20:02 → M ED 23:31
DX: T79.0XXA Air embolism (traumatic), initial encounter (principal); S09.90XA Unspecified injury of head, initial encounter; S01.511A Laceration without foreign body of lip, initial encounter; R91.1 Solitary pulmonary nodule; R91.8 Other nonspecific abnormal finding of lung field; W55.82XA Struck by other mammals, initial encounter; Y92.096 Garden or yard of other non-institutional residence as the place of occurrence of the external cause; Y93.K9 Activity, other involving animal care; Y99.8 Other external cause status; M81.0 Age-related osteoporosis without current pathological fracture; F32.9 Major depressive disorder, single episode, unspecified; K21.9 Gastro-esophageal reflux disease without esophagitis; G40.909 Epilepsy, unspecified, not intractable, without status epilepticus; Z87.891 Personal history of nicotine dependence; Z88.0 Allergy status to penicillin; Z79.899 Other long term (current) drug therapy
CPT/HCPCS: 12013; 70450; 70486; 71260; 72125; 74177; 80047; 80076; 81001; 82150; 82550; 82553; 83605; 83690; 84484; 85025; 85610; 85730; 86850; 86900; 86901; 90471; 90715; 93005; 93041; 94760; 96365; 96375; 99285; J0743; J2405; J3010; Q9967

== ENCOUNTER → 2020-02-22 | Outpatient (CLI) | payer MEDICARE ==
[~2020-02-22] MED LIST changes: +GABA-843 PO
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
== END ==
LOC: M PAIN 13:00
PROVIDERS: ATTEND Nurse Practitioner Family
DX: M51.16 Intervertebral disc disorders with radiculopathy, lumbar region (principal); F32.9 Major depressive disorder, single episode, unspecified; I73.00 Raynaud's syndrome without gangrene; M35.3 Polymyalgia rheumatica; K21.9 Gastro-esophageal reflux disease without esophagitis; Z85.828 Personal history of other malignant neoplasm of skin; A60.09 Herpesviral infection of other urogenital tract; Z87.891 Personal history of nicotine dependence; Z79.899 Other long term (current) drug therapy; Z88.0 Allergy status to penicillin

== ENCOUNTER → 2020-07-02 | Outpatient (REF) | payer MEDICARE ==
[~2020-07-02] MED LIST changes: +GABA-282 PO; -GABA-843 PO
[2020-07-02 12:12] LABS: HEMATOCRIT 42.4 % (36.0-47.0); HEMOGLOBIN 14.2 g/dl (12.0-15.5); MEAN CORPUSCULAR HEMOGLOBIN 32.9 pg (27.0-33.0); MEAN CORPUSCULAR HGB CONC 33.5 g/dl (32.0-36.5); MEAN CORPUSCULAR VOLUME 98.4 fl (80.0-96.0); PLATELET COUNT, AUTOMATED 278 10^3/uL (150-450); RED BLOOD COUNT 4.31 10^6/uL (4.00-5.40); WHITE BLOOD COUNT 5.7 10^3/uL (4.0-10.0)
[2020-07-02 12:52] LABS: ALT/SGPT 14 U/L (12-78); BILIRUBIN,TOTAL 0.7 MG/DL (0.2-1.0); BLOOD UREA NITROGEN 14 MG/DL (7-18); CALCIUM LEVEL 9.2 MG/DL (8.8-10.2); CARBON DIOXIDE LEVEL 32 MEQ/L (21-32); CHLORIDE LEVEL 101 MEQ/L (98-107); CHOLESTEROL LEVEL 258 MG/DL (<200); CREATININE FOR GFR 0.53 MG/DL (0.55-1.30); GLOMERULAR FILTRATION RATE > 60.0 (>45); GLUCOSE, FASTING 90 MG/DL (70-100); HDL CHOLESTEROL 129 MG/DL (>40); POTASSIUM SERUM 4.5 MEQ/L (3.5-5.1); SODIUM LEVEL 137 MEQ/L (136-145); TRIGLYCERIDES LEVEL 63 MG/DL (<150)
[2020-07-02 12:53] LABS: ALBUMIN 4.1 GM/DL (3.2-5.2); LDL CHOLESTEROL 116 MG/DL (<100); NON-HDL-C 129 MG/DL; TOTAL PROTEIN 6.6 GM/DL (6.4-8.2)
== END ==
LOC: M SFHCCLAY 07:28
PROVIDERS: ATTEND Family Medicine
DX: I10 Essential (primary) hypertension (principal)

== ENCOUNTER → 2020-09-29 | Outpatient (CLI) | payer MEDICARE ==
--- NOTE | 2020-09-29 16:40 | REPMRS ---
Patient History The patient states she had a clinical breast exam in September 2020. Family history of breast cancer at age 45 in paternal aunt, colorectal cancer at age 50 or over in paternal uncle, prostate cancer in father. Took estrogen for 1 year. Took unspecified hormones for 3 years. Tomosynthesis is performed. Volpara breast density is b. [facility] lifetime risk of breast cancer 7.7%. Patient states no breast complaints today. Patient has signed MRS History Sheet. Digital Woman Screen Mammo: September 29, 2020 - Exam #: [id number] Bilateral CC and MLO view(s) were taken. Technologist: Abby Gongora, Technologist Prior study comparison: September 25, 2019, bilateral digital woman screen mammo performed at [facility]. July 17, 2018, bilateral digital woman screen mammo performed at [facility]. FINDINGS: There are scattered fibroglandular densities. There has been no change in the appearance of the mammogram from the prior studies. There is a mild amount of residual fibroglandular tissue which is fairly symmetric. There is no interval development of dominant mass, architectural distortion, or clustered microcalcification suggestive of malignancy. Assessment: BI-RADS/ACR category 1 mammogram. Negative Mammogram. Recommendation Routine screening mammogram in 1 year (for women over age 40). This mammogram was interpreted with the aid of an FDA-approved computer-aided dectection system. Electronically Signed By: Jose R Gonzalez MD 09/29/20 1640
== END ==
LOC: M WHC 15:32
PROVIDERS: ATTEND Nurse Practitioner Women's Health
DX: Z12.31 Encounter for screening mammogram for malignant neoplasm of breast (principal); Z80.3 Family history of malignant neoplasm of breast

== ENCOUNTER → 2021-03-25 | Outpatient (REF) | payer MEDICARE ==
[~2021-03-25] MED LIST changes: -CITA40TA4; +CITA40TA7; +OMEP40CA4; -OMEP40CA97
[2021-03-25 16:04] LABS: BASO # 0.1 10^3/uL (0.0-0.2); BASO % 1.1 % (0.0-1.0); EOS # 0.1 10^3/uL (0.0-0.5); EOS % 0.9 % (0.0-3.0); HEMATOCRIT 41.8 % (36.0-47.0); LYMPH # 1.3 10^3/uL (1.5-5.0); LYMPH % 20.9 % (24.0-44.0); MEAN CORPUSCULAR HEMOGLOBIN 32.5 pg (27.0-33.0); MEAN CORPUSCULAR HGB CONC 33.5 g/dl (32.0-36.5); MONO # 0.7 10^3/uL (0.0-0.8); MONO % 10.5 % (2.0-8.0); NEUTROPHILS # 4.2 10^3/uL (1.5-8.5); NEUTROPHILS % 66.3 % (36.0-66.0); PLATELET COUNT, AUTOMATED 286 10^3/uL (150-450); RED BLOOD COUNT 4.31 10^6/uL (4.00-5.40); WHITE BLOOD COUNT 6.4 10^3/uL (4.0-10.0)
[2021-03-25 16:39] LABS: ALBUMIN 4.1 GM/DL (3.2-5.2); ALT/SGPT 17 U/L (12-78); BILIRUBIN,TOTAL 0.7 MG/DL (0.2-1.0); BLOOD UREA NITROGEN 13 MG/DL (7-18); CALCIUM LEVEL 9.2 MG/DL (8.8-10.2); CARBON DIOXIDE LEVEL 32 MEQ/L (21-32); CHLORIDE LEVEL 96 MEQ/L (98-107); CREATININE FOR GFR 0.59 MG/DL (0.55-1.30); GLOMERULAR FILTRATION RATE > 60.0 (>45); GLUCOSE, FASTING 95 MG/DL (70-100); POTASSIUM SERUM 4.4 MEQ/L (3.5-5.1); SODIUM LEVEL 134 MEQ/L (136-145); THYROID STIMULATING HORMONE 0.622 uIU/ML (0.358-3.740)
== END ==
LOC: M SFHCCLAY 11:58
PROVIDERS: ATTEND Physician Assistant
DX: R42 Dizziness and giddiness (principal); Z79.899 Other long term (current) drug therapy
CPT/HCPCS: 80053; 84443; 85025; G0463

== ENCOUNTER → 2021-10-23 | Outpatient (REF) | payer MEDICARE | LOC: M SFHCDERM 16:09 | PROVIDERS: ATTEND Physician Assistant | DX: L82.0 Inflamed seborrheic keratosis (principal) ==

== ENCOUNTER → 2021-12-01 | Outpatient (REF) | payer MEDICARE ==
[2021-12-01 18:23] LABS: HEMATOCRIT 40.7 % (36.0-47.0); HEMOGLOBIN 13.6 g/dl (12.0-15.5); MEAN CORPUSCULAR HEMOGLOBIN 32.3 pg (27.0-33.0); MEAN CORPUSCULAR HGB CONC 33.4 g/dl (32.0-36.5); MEAN CORPUSCULAR VOLUME 96.7 fl (80.0-96.0); PLATELET COUNT, AUTOMATED 303 10^3/uL (150-450); RED BLOOD COUNT 4.21 10^6/uL (4.00-5.40); WHITE BLOOD COUNT 5.2 10^3/uL (4.0-10.0)
[2021-12-01 18:52] LABS: ALT/SGPT 15 U/L (12-78); BILIRUBIN,TOTAL 0.6 MG/DL (0.2-1.0); BLOOD UREA NITROGEN 10 MG/DL (7-18); CALCIUM LEVEL 9.1 MG/DL (8.8-10.2); CARBON DIOXIDE LEVEL 29 MEQ/L (21-32); CHLORIDE LEVEL 97 MEQ/L (98-107); CHOLESTEROL LEVEL 247 MG/DL (<200); GLOMERULAR FILTRATION RATE > 60.0 (>45); GLUCOSE, FASTING 92 MG/DL (70-100); SODIUM LEVEL 130 MEQ/L (136-145); TRIGLYCERIDES LEVEL 82 MG/DL (<150)
[2021-12-01 18:53] LABS: CHOLESTEROL RISK RATIO 2.024 (<5); FREE T4 0.99 NG/DL (0.76-1.46); HDL CHOLESTEROL 122 MG/DL (>40); LDL CHOLESTEROL 109 MG/DL (<100); NON-HDL-C 125 MG/DL; THYROID STIMULATING HORMONE 0.616 uIU/ML (0.358-3.740); TOTAL PROTEIN 6.6 GM/DL (6.4-8.2)
== END ==
LOC: M SFHCCLAY 14:05
PROVIDERS: ATTEND Family Medicine
DX: K21.9 Gastro-esophageal reflux disease without esophagitis (principal); N95.2 Postmenopausal atrophic vaginitis; R13.14 Dysphagia, pharyngoesophageal phase; E78.00 Pure hypercholesterolemia, unspecified

== ENCOUNTER → 2022-01-04 | Outpatient (REF) | payer MEDICARE | LOC: M PLALAB 14:20 | PROVIDERS: ATTEND Nurse Practitioner Family | DX: Z12.4 Encounter for screening for malignant neoplasm of cervix (principal) | CPT/HCPCS: 87624; G0123 ==

== ENCOUNTER → 2022-01-04 | Outpatient (CLI) | payer MEDICARE | LOC: M WHC 13:13 | PROVIDERS: ATTEND Nurse Practitioner Family | DX: Z12.31 Encounter for screening mammogram for malignant neoplasm of breast (principal) ==

== ENCOUNTER → 2022-01-18 | Outpatient (CLI) | payer MEDICARE ==
[~2022-01-18] MED LIST changes: +E-Z-GAS II EFFERVESCENT PACKET (SODIUM BICARB./CITRIC ACID/SIMETHICONE) As Ordered ONE; +E-Z-HD 98% w/w 340GM SUSP BTL As Ordered ONE; +E-Z-PAQUE 96% w/w SUSP 176GM BTL As Ordered ONE
== END ==
LOC: M RAD 09:47
PROVIDERS: ATTEND Family Medicine
DX: R13.10 Dysphagia, unspecified (principal)

== ENCOUNTER → 2022-06-09 | Outpatient (CLI) | payer MEDICARE ==
[~2022-06-09] MED LIST changes: -E-Z-GAS II EFFERVESCENT PACKET (SODIUM BICARB./CITRIC ACID/SIMETHICONE) As Ordered ONE; -E-Z-HD 98% w/w 340GM SUSP BTL As Ordered ONE; -E-Z-PAQUE 96% w/w SUSP 176GM BTL As Ordered ONE
== END ==
LOC: M CLY 13:44
PROVIDERS: ATTEND Family Medicine
DX: R05.3 Chronic cough (principal)

== ENCOUNTER → 2022-09-20 | Outpatient (CLI) | payer MEDICARE ==
[~2022-09-20] MED LIST changes: +E-Z-GAS II EFFERVESCENT PACKET (SODIUM BICARB./CITRIC ACID/SIMETHICONE) As Ordered ONE; +E-Z-HD 98% w/w 340GM SUSP BTL As Ordered ONE; +E-Z-PAQUE 96% w/w SUSP 176GM BTL As Ordered ONE
== END ==
LOC: M RAD 10:10
PROVIDERS: ATTEND Surgery
DX: R13.10 Dysphagia, unspecified (principal)

== ENCOUNTER → 2022-09-21 | Outpatient (REF) | payer MEDICARE ==
[~2022-09-21] MED LIST changes: -E-Z-GAS II EFFERVESCENT PACKET (SODIUM BICARB./CITRIC ACID/SIMETHICONE) As Ordered ONE; -E-Z-HD 98% w/w 340GM SUSP BTL As Ordered ONE; -E-Z-PAQUE 96% w/w SUSP 176GM BTL As Ordered ONE
[2022-09-21 19:22] LABS: BLOOD UREA NITROGEN 10 MG/DL (9-23); CREATININE FOR GFR 0.64 MG/DL (0.55-1.30); GLOMERULAR FILTRATION RATE > 60.0 (>39)
== END ==
LOC: M LABDRAWC 17:45
PROVIDERS: ATTEND Surgery
DX: Z01.812 Encounter for preprocedural laboratory examination (principal)

== ENCOUNTER → 2022-09-30 | Outpatient (CLI) | payer MEDICARE ==
[~2022-09-30] MED LIST changes: +GASTROGRAFIN SOLUTION 30ML As Ordered ONE; +ISOVUE-370 76% 100ML VIAL As Ordered ONE; +LEXA1TAB2 PO; +ROPI0.5T3 PO
== END ==
LOC: M RAD 10:22
PROVIDERS: ATTEND Surgery
DX: E27.9 Disorder of adrenal gland, unspecified (principal); R13.10 Dysphagia, unspecified; R10.813 Right lower quadrant abdominal tenderness
CPT/HCPCS: 74178; Q9963; Q9967

== ENCOUNTER → 2022-09-30 | Outpatient (REF) | payer MEDICARE ==
[~2022-09-30] MED LIST changes: -GASTROGRAFIN SOLUTION 30ML As Ordered ONE; -ISOVUE-370 76% 100ML VIAL As Ordered ONE
== END ==
LOC: M SFHCDERM 12:08
PROVIDERS: ATTEND Physician Assistant
DX: C44.612 Basal cell carcinoma of skin of right upper limb, including shoulder (principal)

== ENCOUNTER → 2022-11-23 | Outpatient (REF) | payer MEDICARE ==
[~2022-11-23] MED LIST changes: -ROPI0.5T3 PO; +ROPI0.5T33 PO
== END ==
LOC: M SFHCDERM 14:21
PROVIDERS: ATTEND Physician Assistant
DX: L90.5 Scar conditions and fibrosis of skin (principal)

== ENCOUNTER → 2022-12-01 | Outpatient (CLI) | payer MEDICARE | LOC: M WHC 13:55 | PROVIDERS: ATTEND Family Medicine | DX: Z12.31 Encounter for screening mammogram for malignant neoplasm of breast (principal) ==

== ENCOUNTER → 2022-12-07 | Outpatient (REF) | payer MEDICARE | LOC: M SFHCDERM 13:47 | PROVIDERS: ATTEND Physician Assistant | DX: L08.9 Local infection of the skin and subcutaneous tissue, unspecified (principal) ==

== ENCOUNTER → 2022-12-14 | Outpatient (REF) | payer MEDICARE ==
[2022-12-14 18:15] LABS: APPEARANCE, URINE CLEAR (CLEAR); BACTERIA, URINE AUTO NEGATIVE (NEGATIVE); BILIRUBIN, URINE AUTO NEGATIVE (NEGATIVE); BLOOD, URINE BLOOD NEGATIVE (NEGATIVE); COLOR, URINE YELLOW (YELLOW); GLUCOSE, URINE (UA) AUTO NEGATIVE (NEGATIVE); KETONE, URINE AUTO NEGATIVE (NEGATIVE); LEUKOCYTE ESTERASE, URINE AUTO NEGATIVE (NEGATIVE); NITRITE, URINE AUTO NEGATIVE (NEGATIVE); PROTEIN, URINE AUTO NEGATIVE (NEGATIVE); RBC, URINE AUTO 0 /HPF (0-3); SPECIFIC GRAVITY URINE AUTO 1.011 (1.002-1.035); SQUAMOUS EPITHELIAL CELL UR AU 0 /HPF (0-6); UROBILINOGEN, URINE AUTO 0.2 mg/dL (0.0-2.0); WBC, URINE AUTO 0 /HPF (0-3)
[2022-12-14 18:18] LABS: HEMATOCRIT 41.5 % (36.0-47.0); HEMOGLOBIN 14.1 g/dl (12.0-15.5); MEAN CORPUSCULAR HEMOGLOBIN 32.9 pg (27.0-33.0); PLATELET COUNT, AUTOMATED 291 10^3/uL (150-450); RED BLOOD COUNT 4.28 10^6/uL (4.00-5.40); WHITE BLOOD COUNT 5.7 10^3/uL (4.0-10.0)
[2022-12-14 18:44] LABS: ALBUMIN 3.9 G/DL (3.2-5.2); ALKALINE PHOSPHATASE 73 U/L (46-116); ALT/SGPT < 9 U/L (7.0-40); AST/SGOT 9 U/L (<34); BILIRUBIN,TOTAL 0.7 MG/DL (0.3-1.2); BLOOD UREA NITROGEN 13 MG/DL (9-23); CALCIUM LEVEL 9.2 MG/DL (8.3-10.6); CARBON DIOXIDE LEVEL 30 MMOL/L (20-31); CHLORIDE LEVEL 97 MMOL/L (98-107); CHOLESTEROL LEVEL 232 MG/DL (<200); CHOLESTEROL RISK RATIO 1.87 (<5); CREATININE FOR GFR 0.62 MG/DL (0.55-1.30); GLOMERULAR FILTRATION RATE > 60.0 (>39); GLUCOSE, FASTING 102 MG/DL (74-106); HDL CHOLESTEROL 123.6 MG/DL (>40); LDL CHOLESTEROL 94.2 MG/DL (<100); NON-HDL-C 108.4 MG/DL; POTASSIUM SERUM 4.2 MMOL/L (3.5-5.1); SODIUM LEVEL 135 MMOL/L (136-145); TOTAL PROTEIN 6.4 G/DL (5.7-8.2); TRIGLYCERIDES LEVEL 71 MG/DL (<150)
== END ==
LOC: M SFHCCLAY 14:17
PROVIDERS: ATTEND Family Medicine
DX: K21.9 Gastro-esophageal reflux disease without esophagitis (principal); E87.1 Hypo-osmolality and hyponatremia; Z79.899 Other long term (current) drug therapy

== ENCOUNTER → 2023-02-25 | Outpatient (REF) | payer MEDICARE | LOC: M SFHCWAGY 17:06 | PROVIDERS: ATTEND Nurse Practitioner Family | DX: Z12.4 Encounter for screening for malignant neoplasm of cervix (principal); R87.610 Atypical squamous cells of undetermined significance on cytologic smear of cervix (ASC-US); N95.8 Other specified menopausal and perimenopausal disorders; R87.810 Cervical high risk human papillomavirus (HPV) DNA test positive | CPT/HCPCS: 87624; G0123 ==

== ENCOUNTER → 2023-02-25 | Outpatient (CLI) | payer MEDICARE | LOC: M WHC 11:16 | PROVIDERS: ATTEND Nurse Practitioner Family | DX: Z12.31 Encounter for screening mammogram for malignant neoplasm of breast (principal) ==

== ENCOUNTER → 2023-05-11 | Outpatient (REF) | payer MEDICARE | LOC: M PLALAB 13:20 | PROVIDERS: ATTEND Advanced Practice Midwife | DX: R87.610 Atypical squamous cells of undetermined significance on cytologic smear of cervix (ASC-US) (principal); R87.810 Cervical high risk human papillomavirus (HPV) DNA test positive ==

== ENCOUNTER → 2023-06-22 | Outpatient (REF) | payer MEDICARE | LOC: M SFHCCLAY 13:55 | PROVIDERS: ATTEND Family Medicine | DX: E78.00 Pure hypercholesterolemia, unspecified (principal); K21.9 Gastro-esophageal reflux disease without esophagitis; F41.9 Anxiety disorder, unspecified ==

== ENCOUNTER 2023-08-19 11:56 | Emergency (ER) | payer MEDICARE ==
[~2023-08-19] VITALS: Ht 162.6 cm; Wt 58.8 kg
[2023-08-19 11:57] VITALS: BP 152/76; TEMP 98.1; O2SAT 99
[2023-08-19] MEDS: PROPARACAINE 0.5% OPHTH SOL 15ML OS ONE (12:41)
[2023-08-19] MEDS: FLUORESCEIN OPHTH 1MG STRIP OS ONE (12:41)
[2023-08-19] MEDS ORDERED: ERYT5OIN25 OS (12:52)
== END 2023-08-19 12:57 | disposition home or self-care (01) ==
LOC: M ED 11:56
DX: S05.02XA Injury of conjunctiva and corneal abrasion without foreign body, left eye, initial encounter (principal); Y92.9 Unspecified place or not applicable; Y93.9 Activity, unspecified; Y99.9 Unspecified external cause status; Z88.0 Allergy status to penicillin; Z79.2 Long term (current) use of antibiotics; Z79.899 Other long term (current) drug therapy

== ENCOUNTER → 2023-12-28 | Outpatient (CLI) | payer MEDICARE ==
[~2023-12-28] MED LIST changes: +ERYT5OIN25 OS
== END ==
LOC: M CLY 14:42
PROVIDERS: ATTEND Family Medicine
DX: R05.3 Chronic cough (principal)

== ENCOUNTER → 2023-12-28 | Outpatient (REF) | payer MEDICARE ==
[2023-12-28 18:05] LABS: HEMATOCRIT 38.7 % (36.0-47.0); HEMOGLOBIN 13.1 g/dl (12.0-15.5); MEAN CORPUSCULAR HEMOGLOBIN 32.5 pg (27.0-33.0); MEAN CORPUSCULAR HGB CONC 33.9 g/dl (32.0-36.5); PLATELET COUNT, AUTOMATED 282 10^3/uL (150-450); RED BLOOD COUNT 4.03 10^6/uL (4.00-5.40); WHITE BLOOD COUNT 7.1 10^3/uL (4.0-10.0)
[2023-12-28 18:21] LABS: ALBUMIN 3.7 G/DL (3.2-5.2); ALKALINE PHOSPHATASE 69 U/L (46-116); ALT/SGPT 11 U/L (7.0-40); AST/SGOT < 8 U/L (<34); BILIRUBIN,TOTAL 0.4 MG/DL (0.3-1.2); BLOOD UREA NITROGEN 15 MG/DL (9-23); CALCIUM LEVEL 9.1 MG/DL (8.3-10.6); CARBON DIOXIDE LEVEL 34 MMOL/L (20-31); CHLORIDE LEVEL 100 MMOL/L (98-107); CHOLESTEROL LEVEL 229 MG/DL (<200); CHOLESTEROL RISK RATIO 2.35 (<5); GLOMERULAR FILTRATION RATE > 60.0 (>39); GLUCOSE, FASTING 84 MG/DL (74-106); HDL CHOLESTEROL 97.1 MG/DL (>40); LDL CHOLESTEROL 120.5 MG/DL (<100); NON-HDL-C 131.9 MG/DL; POTASSIUM SERUM 4.1 MMOL/L (3.5-5.1); SODIUM LEVEL 136 MMOL/L (136-145); TOTAL PROTEIN 6.3 G/DL (5.7-8.2); TRIGLYCERIDES LEVEL 57 MG/DL (<150)
[2023-12-28 18:22] LABS: FREE T4 1.22 NG/DL (0.89-1.76); THYROID STIMULATING HORMONE 0.797 uIU/ML (0.55-4.78)
== END ==
LOC: M SFHCCLAY 14:34
PROVIDERS: ATTEND Family Medicine
DX: E78.00 Pure hypercholesterolemia, unspecified (principal); K21.9 Gastro-esophageal reflux disease without esophagitis; F41.9 Anxiety disorder, unspecified

== ENCOUNTER → 2024-02-29 | Outpatient (REF) | payer MEDICARE ==
[~2024-02-29] MED LIST changes: +GABA-1172 PO; -GABA-282 PO
[2024-03-05 07:01] LABS: HPV APTIMA Detected (Not Detected)
== END ==
LOC: M SFHCWAGY 08:16
PROVIDERS: ATTEND Nurse Practitioner Family
DX: Z12.4 Encounter for screening for malignant neoplasm of cervix (principal); R87.610 Atypical squamous cells of undetermined significance on cytologic smear of cervix (ASC-US); N95.2 Postmenopausal atrophic vaginitis
CPT/HCPCS: 87624; G0123

== ENCOUNTER → 2024-02-29 | Outpatient (CLI) | payer MEDICARE | LOC: M WHC 11:33 | PROVIDERS: ATTEND Nurse Practitioner Family | DX: Z12.31 Encounter for screening mammogram for malignant neoplasm of breast (principal); R92.323 Mammographic fibroglandular density, bilateral breasts ==

== ENCOUNTER → 2024-07-16 | Outpatient (REF) | payer MEDICARE | LOC: M SFHCDERM 17:45 | PROVIDERS: ATTEND Physician Assistant | DX: D49.2 Neoplasm of unspecified behavior of bone, soft tissue, and skin (principal); C44.722 Squamous cell carcinoma of skin of right lower limb, including hip ==

== ENCOUNTER → 2025-02-05 | Outpatient (REF) | payer MEDICARE ==
[~2025-02-05] MED LIST changes: +PRED-1142 PO; -PRED1TABL PO
[2025-02-05 13:25] LABS: ESTIMATED AVERAGE GLUCOSE 91.0 MG/DL (60-110)
[2025-02-05 13:52] LABS: ALT/SGPT 11 U/L (7.0-40); AST/SGOT 16 U/L (<34); CALCIUM LEVEL 9.3 MG/DL (8.3-10.6); CARBON DIOXIDE LEVEL 32 MMOL/L (20-31); CHLORIDE LEVEL 94 MMOL/L (98-107); CHOLESTEROL LEVEL 263 MG/DL (<200); CHOLESTEROL RISK RATIO 2.25 (<5); CREATININE FOR GFR 0.60 MG/DL (0.55-1.30); GLOMERULAR FILTRATION RATE > 90.0 (>39); LDL CHOLESTEROL 135.7 MG/DL (<100); NON-HDL-C 146.3 MG/DL; POTASSIUM SERUM 4.3 MMOL/L (3.5-5.1); SODIUM LEVEL 134 MMOL/L (136-145); TRIGLYCERIDES LEVEL 53 MG/DL (<150)
== END ==
LOC: M SFHCCLAY 08:05
PROVIDERS: ATTEND Physician Assistant
DX: Z00.00 Encounter for general adult medical examination without abnormal findings (principal); F41.9 Anxiety disorder, unspecified; K21.9 Gastro-esophageal reflux disease without esophagitis; G25.81 Restless legs syndrome; E78.00 Pure hypercholesterolemia, unspecified; N95.2 Postmenopausal atrophic vaginitis; A60.00 Herpesviral infection of urogenital system, unspecified; Z79.899 Other long term (current) drug therapy

== ENCOUNTER → 2025-02-08 | Outpatient (CLI) | payer MEDICARE | LOC: M WHC 08:04 | PROVIDERS: ATTEND Physician Assistant | DX: Z12.31 Encounter for screening mammogram for malignant neoplasm of breast (principal); Z53.9 Procedure and treatment not carried out, unspecified reason ==

== ENCOUNTER → 2025-03-12 | Outpatient (CLI) | payer MEDICARE | LOC: M WHC 12:31 | PROVIDERS: ATTEND Physician Assistant | DX: Z12.31 Encounter for screening mammogram for malignant neoplasm of breast (principal); Z53.9 Procedure and treatment not carried out, unspecified reason ==

== ENCOUNTER → 2025-03-19 | Outpatient (CLI) | payer MEDICARE | LOC: M WHC 11:11 | PROVIDERS: ATTEND Physician Assistant | DX: Z12.31 Encounter for screening mammogram for malignant neoplasm of breast (principal) ==